=== PATIENT | male | born 1960 | race Caucasian/White ===

== ENCOUNTER 2022-03-07 08:51 | Outpatient (CLI) | payer OTHER, SELFPAY ==
[2022-03-07 14:11] LABS: Albumin* 4.7 g/dL (3.3-5.0); Chloride* 104 mmol/L (96-114); Sodium* 141 mmol/L (135-149)
[2022-03-07 14:12] LABS: Potassium* 5.5 mmol/L (3.6-5.1)
[2022-03-07 14:14] LABS: Alanine Aminotransferase* 27 U/L (4-50); Alkaline Phosphatase* 83 U/L (40-150); Aspartate Amino Transferase* 30 U/L (12-35); Bilirubin Total* 0.5 mg/dL (0.1-1.5); Blood Urea Nitrogen* 24 mg/dL (7-30); Calcium* 9.5 mg/dL (8.4-10.6); Carbon Dioxide* 25 mmol/L (20-32); Cholesterol* 228 mg/dL (90-199); Creatinine* 0.8 mg/dL (0.5-1.5); Estimated Glomerular Filt Rate 101 ml/min; Glucose* 174 mg/dL (60-115); Total Protein* 7.5 g/dL (6.0-8.3); Triglycerides* 369 mg/dL (40-149)
[2022-03-07 14:15] LABS: HDL Cholesterol* 41 mg/dL (>=40); LDL Cholesterol Calculated 113 mg/dL (<100)
[2022-03-07 14:24] LABS: Creatinine Urine 47.9 mg/dL
[2022-03-07 14:29] LABS: Microalbumin Creatinine Ratio 40 mg/g (0-30); Microalbumin Urine 2 mg/dL
[2022-03-08 17:03] LABS: Testosterone, Adult Male 102 ng/dL (300-720)
== END 2022-03-07 08:52 | disposition home or self-care (01) ==
PROVIDERS: PCP Physician Assistant Medical; Visit Provider Physician Assistant Medical
DX: E11.9 Type 2 diabetes mellitus without complications (principal); E66.9 Obesity, unspecified; E78.2 Mixed hyperlipidemia; N52.9 Male erectile dysfunction, unspecified; E78.5 Hyperlipidemia, unspecified; K21.9 Gastro-esophageal reflux disease without esophagitis
CPT/HCPCS: 80053; 80061; 82043; 82570; 84403

== ENCOUNTER 2022-03-19 09:35 | Outpatient (CLI) | payer OTHER, SELFPAY ==
--- NOTE | 2022-03-19 09:45 | CRLHL7_ITS ---
For Patients: As a result of the Century Cures Act, medical imaging exams and procedure reports are released immediately into your electronic medical record. You may view this report before your referring provider. If you have questions, please contact your health care provider. INDICATION: Hyperkalemia TECHNIQUE: Grayscale, color Doppler and spectral Doppler ultrasound of the kidneys performed. COMPARISON: None available FINDINGS: BILATERAL RENAL ARTERY DUPLEX ULTRASOUND ABDOMINAL AORTA: Peak systolic velocity = 94 cm/s. No aortic aneurysm. RIGHT KIDNEY: 12.5 cm in length. There is no hydronephrosis. Peak systolic velocity = 116 cm/second Renal artery to aortic peak systolic velocity ratio = 1.2 Resistive indices: 0.6-0.8 Renal vein = patent LEFT KIDNEY: 12.4 cm in length. There is no hydronephrosis. Peak systolic velocity = 210 cm/second. The acceleration time and waveforms are normal. Renal artery to aortic peak systolic velocity ratio = 2.2 Resistive indices: 0.6-0.7 Renal vein = patent IMPRESSION: No evidence of significant renal artery stenosis. Dictated by Jarrett Mcguire MD @ 03/19/2022 11:43:40 AM (Electronically Signed)
== END 2022-03-19 09:36 | disposition home or self-care (01) ==
LOC: US 09:36
PROVIDERS: PCP Physician Assistant Medical; Visit Provider Physician Assistant Medical
DX: E87.5 Hyperkalemia (principal)
CPT/HCPCS: 76775; 93975

== ENCOUNTER 2022-04-11 09:14 | Outpatient (CLI) | payer OTHER, SELFPAY ==
--- OUTSIDE RECORDS SUMMARY | 2022-04-11 08:01 | XMS_ITS | Clinical Summary ---
:1960 Author Organization [facility] [place] [address] Care Team Providers Name Role Phone Sherrie Hernandez PA-C Primary Care Provider Allergies Active Allergy Reactions Severity Noted Date Comments Lidocaine Hcl Other - Describe In 03/24/2014 Convuls ions as a child Comment Field Shellfish Containing Anaphylaxis 03/24/2014 Products Medications Medication Sig Dispensed Refills Start Date End Date Status ibuprofen (ADVIL) Take 200 mg by mouth 0 Active 200 mg tablet 4 times daily if needed. OMEPRAZOLE/SODIUM Take by mouth. Takes 0 Active BICARBONATE 2-4 per day (ZEGERID ORAL) oxyCODONE-acetamino Take 1 tablet by 20 tablet 0 03/26/2014 Active phen, 5-325 mg, mouth every 4 hours (PERCOCET) per if needed for Pain. tablet Max acetaminophen dose: 4000mg in 24 hrs. HYDROcodone-acetami Take 1 Tablet by 5 Tablet 0 04/15/2021 Active nophen (NORCO) mouth every 4 hours 5-325 mg per if needed for Pain. tabletIndications: Max acetaminophen Laceration of left dose: 4000 mg in 24 foot, initial hrs. encounter Active Problems Not on file Immunizations Name Administration Dates Next Due Tdap 04/15/2021 Family History Medical History Relation Name Comments Heart Disease Father Other Father stroke/dysrhythm ia Relation Name Status Comments Father Social History Tobacco Use Types Packs/Day Years Used Date Former Smoker Quit: 07/29/18 95 Smokeless Tobacco: Never Used Alcohol Use Standard Drinks/Week Comments Yes 0 (1 standard drink = 0.6 oz pure alcoho l) 0.2 drinks per week Alcohol Habits Answer Date Recorded How often do you have a drink containing alcohol? Not asked How many drinks containing alcohol do you have on a Not aske d typical day when you are drinking? How often do you have six or more drinks on one Not asked occasion? Comment: 0.2 drinks per week 03/24/2014 Sex Assigned at Date Recorded Not on file Obstetrics History Last Filed Vital Signs Vital Sign Reading Time Taken Comments Blood Pressure 123/81 04/15/2021 3:31 PM CDT Pulse 96 04/15/2021 3:31 PM CDT Temperature 35.6 ??C (96.1 ??F) 04/15/2021 3:31 PM CDT Respiratory Rate 16 04/15/2021 3:31 PM CDT Oxygen Saturation 96% 04/15/2021 3:31 PM CDT Inhaled Oxygen Concentration - - Weight 95.3 kg (210 lb) 04/15/2021 3:31 PM CDT Height 170.2 cm (5' 7) 04/15/2021 3:31 PM CDT Body Mass Index 32.89 04/15/2021 3:31 PM CDT Plan of Treatment Health Maintenance Due Date Last Done Comments COVID-19 vaccine series (#1) 02/03/1962 Depression screening for age 12+ 1973 BMI (ht and wt on same day) for age 18+ 1979 Hepatitis C screening for age 18-79 1979 Colonoscopy through age 75 2006 Lipids for age 45-75 2006 Zoster (shingles) series for age 50+ (1 of 2) 2011 Influenza for age 50-64 03/29/2022 Tetanus booster 04/15/2031 04/15/2021 Tdap Completed 04/15/2021 Results Not on filefrom Last 3 Months Insurance Payer Benefit Plan / Subscriber ID Effective Dates Phone Addre ss Type Group [employer] [id number] 2013-Presen [id number] MYRANDA NICHOLE [id number] [facility] [id number] 2020-Presen [address] [place] [address] Advance Directives Latest Code Status on File Code Status Date Activated Date Inactivated Comments Full Code 03/25/2014 3:13 PM 03/26/2014 6:17 PM Full Code 03/25/2014 6:12 AM 03/25/2014 3:13 PM Care Teams Supervisor Refractory Products Relationship Specialty Start Date End Date Sherrie Hernandez PA-C PCP - General Emergency Medicine 04/15/[address] [place] [address]
--- OUTSIDE RECORDS SUMMARY | 2022-04-11 08:01 | XMS_ITS | Clinical Summary ---
:1960 Author Organization [facility] Address [address] [address] Care Team Providers Name Role Phone Sherrie Hernandez PA-C Primary Care Provider Source Comments You are receiving this document as you are listed as the primary care provider,follow-up provider, or the patient has been referred to you for consultation.This is in compliance with the Medicare and Medicaid EHR Incentive Program,which states Providers who transition their patient to another setting of careor provider of care or refers their patient to another provider of care shouldprovide summarycare record for each transition of care or referral. [facility] Encounters Date Type Specialty Care Team Description 03/09/2022 Telephone Endocrinology Nurse, [id number] End APPOINTMEN T REQUEST (Referral DM2) from Last 3 Months Social History Tobacco Use Types Packs/Day Years Used Date Smoking Tobacco: Never Assessed Sex Assigned at Date Recorded Not on file Plan of Treatment Health Maintenance Due Date Last Done Comments Colon Cancer Screening Plan 1960 Due Hep C Screening (Preventive 1960 Services) COVID-19 Vaccine (#1) 02/03/1962 HIV Screening (Preventive 1977 Services) Adult Preventive Visit 1979 DTaP/Tdap/Td (1 - Tdap) 1980 Cholesterol 1996 Influenza (#1) 2022 04/09/2019, 03/25/2017, 04/23/2016 Pneumococcal Aged Out 04/23/2016 No longer eligib le based on patient's age to complete this to pic Zoster/Shingles Completed 02/10/2018, 10/25/2017 HepA Aged Out No longer eligib le based on patient's age to complete this to pic HepB Aged Out No longer eligib le based on patient's age to complete this to pic Hib Aged Out No longer eligib le based on patient's age to complete this to pic IPV (Polio) Aged Out No longer eligib le based on patient's age to complete this to pic MCV4 Aged Out No longer eligib le based on patient's age to complete this to pic Insurance Payer Benefit Subscriber ID Effective Phone Address Type Plan / Dates Group [facility] 2019-Pres [phone] [phone] [place] [address] Care Teams Dedicated Local Truck Driver Relationship Specialty Start Date End Date Sherrie Hernandez PA-C PCP - General Physician Master Merchandiser 04/20/[address] [place] [address]
--- OUTSIDE RECORDS SUMMARY | 2022-04-11 08:01 | XMS_ITS ---
:1960 Author Care Team Providers Name Role Phone Ignacia Roblero Primary Care Provider Unavailable Allergies Code Code System Name Reaction Severity Status Onset NKDA ? Medications Name Status Start Date Stop Date ? ? Accu-Chek Charito Plus test strips Active ? Not available Accu-Chek Softclix Lancets Active ? Not a vailable aspirin 81 mg tablet,delayed release Active ? Not available atorvastatin 10 mg tablet Active ? Not av ailable cephalexin 500 mg capsule Active ? Not av ailable fenofibrate micronized 134 mg capsule Active ? Not available glipizide ER 10 mg tablet, extended release 24 hr Active ? Not available hydrocodone 5 mg-acetaminophen 325 mg tablet Active ? Not available Januvia 50 mg tablet Active ? Not availab le Jardiance 10 mg tablet Active ? Not avail able metformin 1,000 mg tablet Active ? Not av ailable phentermine 37.5 mg tablet Active ? Not a vailable sulfamethoxazole 800 mg-trimethoprim 160 mg tablet Active ? Not available TAKE ONE TABLET BY MOUTH TWICE DAILY UNTIL FINISHED topiramate 25 mg tablet Active ? Not avai lable Problems None recorded. Procedures None recorded. Results Lab Results Date Name Specimen Result Interpretation Description Value Range Status Address ? 08/11/2021 Rapid SARS CoV Nose (nasal ? Result negative ? ? [facility] 2 Ag, QL IA, passage) [facility] Respiratory [facility] ille: Specimen [id number] Past Encounters 08/11/2021 Exposure to SARS-CoV-2; Viral Syndrome Ignacia Roblero, PA: [address] , [address] [address], Ph. [phone] Social History None recorded. Vaccine List None recorded. Plan of Care Patient Instructions Discussed rapid covid results with bill ent. Patient appears well, no immediate concerns. Patient understands and agrees with treatment plan and instructions. Symptom management discussed to continue OTC cough/cold medications as needed. Medication side effects discussed. Discu ssed risks? benefits? alternatives? side effects of treatment. If symptoms progre ss or worsen, patient should proceed to the emergency room immediately. All question s answered. Reminders Provider Appointments None recorded. ? ? Lab None recorded. ? ? Referral None recorded. ? ? Procedures None recorded. ? ? Surgeries None recorded. ? ? Imaging None recorded. ? ? Vitals Blood Pressure 137/89 mm[Hg]
--- OUTSIDE RECORDS SUMMARY | 2022-04-11 08:01 | XMS_ITS | Encounter Summary ---
:1960 Author Organization [employer] Address [address] [place] [address] Care Team Providers Name Role Phone Sherrie Hernandez Juan STONE Primary Care Provider Reason for Visit Reason Comments HEARING PROBLEM Tinnitus Encounter Details Date Type Department Care Team Description 04/20/2020 Office Visit [facility] [address] [place] sensorineural hearing [place], [place] [address] [facility] loss of ester th ears [id number] [address] (Primary Dx) [phone] [place] [address] Social History Tobacco Use Types Packs/Day Years Used Date Smoking Tobacco: Never Assessed Sex Assigned at Date Recorded Not on file documented as of this encounter Progress Notes Mere Crawford AU.D. - 04/20/2020 1:00 PM CDT Subjective: Bishop Flores, 59 y.o., was seen for an audiological evaluation upon self-referral. He has not been seen previously for a hearing evaluation at [facility]. The patient reports that he has not heard well for several years. He says what often. [facility] and [facility]. Per patient report, he receives benefits through the [facility], but he was not deemed service connected. He did not qualify for hearing aids through the [facility]. 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 He notes use of ear-muff style hearing protection. He also reports constant tinnitus in both ears. The patient denies drainage, ear pain, pressure, vertigo/dizziness, previous ear surgery, family history of hearing loss. Objective: Otoscopy revealed clear ear canals, bilaterally. Tympanometry revealed normal ear canal volume, pressure and static admittance, bilaterally. Patient was evaluated under insert earphones with good reliability. Pure tone audiometric testing revealed an asymmetrical sensorineural hearing loss; normal through 3000 Hz sloping to moderate, in the right ear, and normal through 2000 Hz sloping to moderate, in the left ear. Asymmetry of 20-25 dBHL noted at 3-4 kHz, poorer in the left ear. Speech medical receptionist assistant thresholds were obtained at 15 dBHL for the right ear and 20 dBHL for the left ear. Word recognition at 55 dBHL was 100% for the right ear and at 55 dBHL was 100% for the left ear using NU-6 wordlist. Assessment: Results indicate a communicatively significant asymmetrical sensorineural hearing loss. Tympanometrywas normal,bilaterally. Speech medical receptionist assistant thresholds were in good agreement with the pure tone thresholds. Word recognition for both ears was considered to be excellent at a conversational level. Plan: These results were discussed with the patient. It was recommended that the patient follow up with anear, nose, and throat consultation in regards to asymmetrical hearing loss. Various ways to minimizethe impact of tinnitus on everyday life were discussed including the use of fan noise and tinnitus masker apps. He is a candidate for binaural amplification pending medical clearance and was invited to schedule ahearing aid evaluation appointment to learn more about available amplification options. He was also encouraged to follow up with the [facility] for potential [facility] aid coverage due to tinnitus and hearing loss. Regardless of his amplification choice, it was recommended that he return to the clinic in one totwo years for a hearing evaluation to monitor his hearing and to utilize hearing protection devices when in noise. All questions were fully answered. documented in this encounter Plan of Treatment Not on filedocumented as of this encounter Visit Diagnoses Diagnosis Asymmetrical sensorineural hearing loss of both ears - Primary documented in this encounter Care Teams Commercial Kitchen Service Technician Relationship Specialty Start Date End Date Sherrie Hernandez PA-C PCP - General Physician Tester Printed Circuit Boards 04/20/20 [address] [place] [address] documented as of this encounter
[2022-04-12 18:55] LABS: Testosterone, Adult Male 162 ng/dL (300-720)
== END 2022-04-11 09:15 | disposition home or self-care (01) ==
PROVIDERS: PCP Physician Assistant Medical; Visit Provider Physician Assistant Medical
DX: R79.89 Other specified abnormal findings of blood chemistry (principal)
CPT/HCPCS: 84403

== ENCOUNTER 2022-08-29 15:01 | Outpatient (CLI) | payer OTHER, SELFPAY ==
[2022-08-29 13:42] LABS: Creatinine Urine 76.7 mg/dL
[2022-08-29 13:46] LABS: Microalbumin Creatinine Ratio 20 mg/g (0-30); Microalbumin Urine 2 mg/dL
[2022-08-29 14:59] LABS: Albumin* 4.6 g/dL (3.3-5.0)
[2022-08-29 15:00] LABS: Chloride* 106 mmol/L (96-114); Sodium* 143 mmol/L (135-149)
[2022-08-29 15:02] LABS: Aspartate Amino Transferase* 32 U/L (12-35); Bilirubin Total* 0.6 mg/dL (0.1-1.5); Carbon Dioxide* 27 mmol/L (20-32); Cholesterol* 186 mg/dL (90-199); Creatinine* 0.8 mg/dL (0.5-1.5); Estimated Glomerular Filt Rate 101 ml/min; Total Protein* 7.4 g/dL (6.0-8.3)
[2022-08-29 15:03] LABS: Alanine Aminotransferase* 31 U/L (4-50); Alkaline Phosphatase* 66 U/L (40-150); Blood Urea Nitrogen* 19 mg/dL (7-30); Calcium* 9.7 mg/dL (8.4-10.6); Glucose* 128 mg/dL (60-115); HDL Cholesterol* 45 mg/dL (>=40); LDL Cholesterol Calculated 89 mg/dL (<100); Potassium* 4.6 mmol/L (3.6-5.1); Triglycerides* 262 mg/dL (40-149)
[2022-08-30 22:17] LABS: Testosterone, Adult Male 128 ng/dL (300-720)
== END 2022-08-29 15:02 | disposition home or self-care (01) ==
PROVIDERS: PCP Physician Assistant Medical; Visit Provider Physician Assistant Medical
DX: E11.9 Type 2 diabetes mellitus without complications (principal); R79.89 Other specified abnormal findings of blood chemistry; E78.5 Hyperlipidemia, unspecified
CPT/HCPCS: 80053; 80061; 82043; 82570; 84403

== ENCOUNTER 2023-03-06 08:50 | Outpatient (CLI) | payer OTHER, SELFPAY | END 2023-03-06 08:51 | disposition home or self-care (01) | PROVIDERS: PCP Physician Assistant Medical; Visit Provider Physician Assistant Medical | DX: Z00.00 Encounter for general adult medical examination without abnormal findings (principal); R79.89 Other specified abnormal findings of blood chemistry; E87.5 Hyperkalemia; E66.9 Obesity, unspecified; E11.9 Type 2 diabetes mellitus without complications; E78.5 Hyperlipidemia, unspecified; R53.83 Other fatigue; Z12.5 Encounter for screening for malignant neoplasm of prostate; Z11.59 Encounter for screening for other viral diseases | CPT/HCPCS: 80053; 82043; 82570; 82607; 84153; 84403; 86703; 86803 ==

== ENCOUNTER 2024-10-12 08:52 | Outpatient (CLI) | payer OTHER, SELFPAY | END 2024-10-12 08:53 | disposition home or self-care (01) | LOC: NFLDREF 10-13 05:26 | PROVIDERS: PCP Physician Assistant Medical; Visit Provider Physician Assistant Medical | DX: E78.5 Hyperlipidemia, unspecified (principal); E11.9 Type 2 diabetes mellitus without complications; Z13.21 Encounter for screening for nutritional disorder; Z13.29 Encounter for screening for other suspected endocrine disorder; Z12.5 Encounter for screening for malignant neoplasm of prostate | CPT/HCPCS: 80053; 80061; 82043; 82570; 82607; 84443; G0103 ==

== ENCOUNTER 2024-10-28 08:42 | Outpatient (CLI) | payer OTHER, SELFPAY | END 2024-10-28 08:43 | disposition home or self-care (01) | LOC: NFLDREF 10-31 12:32 | PROVIDERS: PCP Physician Assistant Medical; Visit Provider Physician Assistant Medical | DX: D58.2 Other hemoglobinopathies (principal); R79.89 Other specified abnormal findings of blood chemistry; E87.5 Hyperkalemia | CPT/HCPCS: 82668; 84132; 84403 ==

== ENCOUNTER 2024-11-04 14:26 | Outpatient (CLI) | payer OTHER, SELFPAY | END 2024-11-04 14:27 | disposition home or self-care (01) | PROVIDERS: PCP Physician Assistant Medical; Visit Provider Emergency Medicine | DX: D58.2 Other hemoglobinopathies (principal); R79.89 Other specified abnormal findings of blood chemistry; R53.83 Other fatigue; D75.1 Secondary polycythemia; Z01.818 Encounter for other preprocedural examination | CPT/HCPCS: 81219; 81270; 81338; 82728; 83540; 83550 ==

== ENCOUNTER 2024-11-10 10:00 | Outpatient (CLI) | payer OTHER, SELFPAY ==
--- NOTE | 2024-11-10 11:34 | P.ANES_ITS ---
Anesthesia Charges Start Date/Time Anesthesia Start Date: 11/10/24 Anesthesia Start Time: 11:05 Stop Date/Time Anesthesia Stop Date: 11/10/24 Anesthesia Stop Time: 12:10 Coding CPT Codes CPT Codes: TYLER LWR INTST NDSC NOS - 52168 ([id number]) P2 - PATIENT W/MILD SYST DISEASE, QK - HUMAN RESOURCES ASSOCIATE 2-4 CNCRNT ANES PROC, QX - PYROGLAZER SVC W/ MD MED DIRECTION
--- NOTE | 2024-11-10 11:34 | W.ANESCHARGE ---
Anesthesia Charges Start Date/Time Anesthesia Start Date: 11/10/24 Anesthesia Start Time: 11:05 Stop Date/Time Anesthesia Stop Date: 11/10/24 Anesthesia Stop Time: 12:10 Coding CPT Codes CPT Codes: TYLER LWR INTST NDSC NOS - 49651 ([id number]) P2 - PATIENT W/MILD SYST DISEASE, QK - BULK MATERIALS HANDLING PLANT OPERATOR 2-4 CNCRNT ANES PROC, QX - TECHNICAL RESEARCH SCIENTIST SVC W/ MD MED DIRECTION
--- NOTE | 2024-11-10 12:18 | P.ANES_ITS ---
Anesthesia Charges Start Date/Time Anesthesia Start Date: 11/10/24 Anesthesia Start Time: 11:05 Stop Date/Time Anesthesia Stop Date: 11/10/24 Anesthesia Stop Time: 12:10 Coding CPT Codes CPT Codes: TYLER LWR INTST NDSC NOS - 95062 ([id number]) P2 - PATIENT W/MILD SYST DISEASE, QK - HEALTH THERAPIST 2-4 CNCRNT ANES PROC, QX - PSYCHOLOGISTS SVC W/ MD MED DIRECTION
--- NOTE | 2024-11-10 12:18 | W.ANESCHARGE ---
Anesthesia Charges Start Date/Time Anesthesia Start Date: 11/10/24 Anesthesia Start Time: 11:05 Stop Date/Time Anesthesia Stop Date: 11/10/24 Anesthesia Stop Time: 12:10 Coding CPT Codes CPT Codes: TYLER LWR INTST NDSC NOS - 42699 ([id number]) P2 - PATIENT W/MILD SYST DISEASE, QK - MEDICAL SCREENER 2-4 CNCRNT ANES PROC, QX - BOX SEALING MACHINE CATCHER SVC W/ MD MED DIRECTION
== END 2024-11-10 10:01 | disposition home or self-care (01) ==
LOC: OP CLINIC 10:00
PROVIDERS: PCP Physician Assistant Medical; Visit Provider Surgery
DX: Z12.11 Encounter for screening for malignant neoplasm of colon (principal); D12.0 Benign neoplasm of cecum; D12.2 Benign neoplasm of ascending colon; D12.3 Benign neoplasm of transverse colon; D12.5 Benign neoplasm of sigmoid colon; Z86.0100 Personal history of colon polyps, unspecified
CPT/HCPCS: 00811; 45380; 45381; 45385; 88305

== ENCOUNTER 2024-12-01 11:30 | Outpatient (RCR) | payer OTHER, SELFPAY | END 2025-05-09 23:59 | disposition home or self-care (01) | LOC: CCIC 11:30 | PROVIDERS: PCP Physician Assistant Medical; Referring Provider Physician Assistant Medical; Visit Provider Internal Medicine Hematology & Oncology | DX: D75.1 Secondary polycythemia (principal) | CPT/HCPCS: 99202; 99204; 99213; 99214; G0463; J2704 ==

== ENCOUNTER 2024-12-29 07:54 | Inpatient (IN) | payer OTHER, SELFPAY ==
[2024-12-29] VITALS (23 sets, daily range): BP systolic 122–162; BP diastolic 66–100; PULSE 51–83; RESP 12–18; TEMP 36.6–37.6; O2SAT 79–96; BMI 32.1
[2024-12-29] MEDS: LACTATED RINGERS 1000 ML 1,000 ML 100 ML IV ×4 (08:00→17:04)
[2024-12-29] MEDS: SODIUM CHLORIDE 0.9 % (FLUSH) 10 ML SYRINGE IVF (08:50)
--- NOTE | 2024-12-29 08:52 | W.PM.H&PU ---
History & Physical Update History & Physical Update H&P Reviewed and patient assessed: No changes noted
--- NOTE | 2024-12-29 08:53 | P.GSOP_ITS ---
Operative Note Date of procedure: 12/29/24 Pre-op diagnosis: 1. Ileocecal valve polyp. Post-op diagnosis: Same Type of Procedure: 1. Laparoscopic right hemicolectomy. 2. Extensive lysis of adhesions over 2 hours. Indications: 64-year-old male was seen in clinic after he underwent a colonoscopy in October 2024 and was found to have 23 mm tubular adenoma overlying the ileocecal valve. This polyp was deemed to be surgically unresectable and was only biopsied. Patient's surgical history is significant for laparoscopic Blanca fundoplication and open appendectomy. On clinical exam patient had surgical scars consistent with his prior surgical history. His abdomen was not tender to palpation. Given patient's clinical history in the polyp appearance, laparoscopic ileocecectomy was recommended. The procedure was discussed in detail. The risks associated procedure including infection, bleeding, injury to intra- abdominal organs, and the need for additional procedures were all discussed with the patient, and he agreed to proceed. Procedure Description: After discussing the risks and benefits of the procedure, the patient signed informed consent.? The operative site was marked and the patient was brought to the operating room and placed on the operating table in supine position.? Care was taken to pad the patient's pressure points.?? The patient was then intubated by anesthesia.? Baker catheter was placed under sterile conditions. TAP blocks were administered by Anesthesia.? The operative site was then prepped and draped in the usual sterile fashion.? A time-out was then performed. A 5-mm laparoscopy port was placed in the left upper quadrant guided by a 5-mm laparoscope placed into a translucent trochar.? Passage through the layers of the abdominal wall was visualized with the laparoscope.? A pneumoperitoneum was established. A 30-degree 5-mm laparoscope was advanced into the abdomen. 12 mm port and a 5-mm port were placed in the left low quadrant and suprapubically, respectively, under direct visualization by laparoscope. An additional 5 mm port was placed above umbilicus. Left upper quadrant entrance port was then examined intraabdominally by placing the camera through the left lower quadrant port and no intraabdominal injury was seen.? The cecum was identified and was adherent to the lateral abdominal wall. The terminal ileum was identified and was adherent to the lateral abdominal wall as well. Omentum was overlying the cecum and was also adherent to the abdominal wall. I first proceeded with lysis of adhesions. The omental adhesions were taken down with Harmonic scalpel. The cecum was then grasped and rotated medially. Right colon abdominal wall adhesions to the lateral abdominal wall were taken down with Harmonic scalpel and with Metzenbaum scissors. The terminal ileal adhesions to the lateral abdominal wall were taken down with Harmonic scalpel and Metzenbaum scissors. Several interloop adhesions were noted and those were taken down with Metzenbaum scissors. Medially the omentum was adherent to the right colon mesentery and to the ascending colon. Those adhesions were taken down with Harmonic scalpel until the anterior and medial wall of the right colon was visualized. Overall lysis of adhesions took over 2 hours. The cecum was retracted medially. The appendix was surgically absent. I then proceeded with a medial to lateral dissection. The cecum was grasped and retracted towards the abdominal wall.? Vascular branch of the ileocolic vascular pedicle was identified but this was too small to be the ileocolic vascular pedicle and was most likely a branch of the ileocolic artery. This was skeletonized with the Harmonic scalpel. This vascular branch was then controlled with vascular staple load of Endo SUREKHA stapler. Bleeding was seen from the staple line and that was controlled with a vascular clip. We then continued mesenteric dissection further. The right colon mesentery was fatty and thickened and it was difficult to visualize the vascular pedicle. I elected to proceed with mobilization of hepatic flexure. The transverse colon and hepatic flexure were reflected caudad. Omentum was tightly adherent to the anterior side of the transverse colon. These adhesions were taken down with Harmonic scalpel. The avascular plane of the posterior transverse colon was then identified and entered with Harmonic scalpel. The transverse colon was reflected caudally and this dissection was carried towards the hepatic flexure. Care was taken not to injure the duodenum. Multiple adhesions were encountered in this plane as well from patient's previous surgery. This dissection was carried further towards the lateral abdominal wall in the relatively avascular plane. When the right colon was mobile laterally, I returned my dissection to the medial plane. I was able to identify the ileocolic vascular pedicle and dissect this circumferentially bluntly and with Harmonic scalpel. The vascular pedicle was located in the mid ascending colon, and dividing this vascular pedicle would devascularize the ascending colon. I elected to convert the ileocecectomy into right hemicolectomy to have healthy colon for anastomosis. This vascular pedicle was then stapled with a vascular load of Endo-SUREKHA stapler. The right colon mesentery was then further dissected towards the hepatic flexure. A right branch of the colic artery was also identified and this branch was fairly short tethering the right colon to the retroperitoneal plane. I elected to divide this branch to be able to have increased mobility of the hepatic flexure and create tension-free anastomosis. This vascular branch was then clipped with 5 mm clips on the patient's side and a single clip on the specimen side and divided with Harmonic scalpel. At this time the right colon was mobile and flappy and the terminal ileum was mobile. We proceeded with extracorporeal part of the procedure. The patient was flattened, supraumbilical 5 mm port was removed, and a supraumbilical surgical incision was made with a scalpel in the midline. Subcutaneous tissues were divided with cautery. Anterior fascia was divided with cautery.? Patient's abdominal wall was thin was almost no subcutaneous fat.? The abdomen was then deflated.? The Alex retractor was placed into the incision.? The dissected right colon and cecum were exteriorized.? The right colon was still tethered by the right colon mesentery to the retroperitoneum. The right colon mesentery was divided with Harmonic scalpel staying close to the right colon. The terminal ileum were very mobile.? We then proceeded with extracorporeal [id number] functional end-to-end anastomosis. Towels were used to cover the entire abdomen and laparoscopic instruments to minimize contamination. Small bowel mesentery just proximal to the ileocecal valve was divided with clamps and Vicryl ties. A blue load of SUREKHA stapler was used to divide the terminal ileum and another load was used to divide ascending colon at the level of hepatic flexure of transverse colon. The specimen was then passed off the field. Prominent epiploic fat was seen in the anterior medial transverse colon. Several epiploic fat were excised with cautery to exclude this from anastomosis. This was sent to pathology with the right colon specimen. The transverse colon and terminal ileum were then lined up for anastomosis.? An enterotomy was made near the staple line with cautery.? A colotomy was also made near the staple line with cautery.? The handles of the SUREKHA stapler were advanced into the small intestine and colon.? The [id number]-dy-guod anastomosis was then made with the 100 blue load of SUREKHA stapler.? The staple line was examined from the inside and no active bleeding was seen.? The common enterotomy was then closed with interrupted 3-0 silk pop-off sutures using Lembert sutures.? A crotch stitch was placed with 3-0 silk suture as well.? The anastomosis was palpated and was patent.? Anastomosis appeared well perfused.? The anastomosis was then placed into the abdomen.? The right colon was opened on the back table and ileocecal valve polyp was identified. The right colon was sent to pathology together with epiploic fat. All the dirty instruments and towels were removed.? The Alex retractor was removed.? The surgeon and assistants changed gloves to new gloves.? We then proceeded with abdominal closure. The anterior fascia was then closed with 2 running 0-0 PDS sutures.?The abdomen was then insufflated again.? The anastomosis was examined intra-abdominally and appeared to be lying in the right upper quadrant and was perfused.? No bleeding was identified in the surgical field.? The abdomen was irrigated and no significant bleeding was noted at the surgical site.? Redundant Omentum was placed over the entire abdomen.? The fascia of the left lower quadrant 12 mm port incision was closed with 0-0 Vicryl sutures with Gregg-Cassius needle under direct visualization. The 5 mm ports were removed under direct visualization and pneumoperitoneum was reduced through a left upper quadrant incision. The dermis of the supraumbilical incision was reapproximated with interrupted 3- 0 Vicryl sutures.? The skin of all incisions was closed with 4-0 Monocryl stitches.? Sterile dressings were placed over the incisions. All counts were correct at the end of the case. Patient tolerated this procedure well and was transferred to PACU in stable condition. Findings: Extensive adhesions in the right abdomen and near hepatic flexure. The ileocecal valve polyp was identified when the colon was opened on the back table. Anesthesia: GETA Surgeon: Vasyl Proctor MD Estimated blood loss (mL): 50 Additional Specimen Information: 1. Right colon. Condition: stable Disposition: PACU
[2024-12-29] MEDS: ERTAPENEM 1 GM inj IVPB (09:36)
--- NOTE | 2024-12-29 09:37 | W.PM.NB ---
Nerve Block Nerve Block Time Seen by Provider: 09:32 Date Seen: 12/29/24 Type of block requested by surgeon for post-operative analgesia: TAP Side: bilateral Time out performed: Yes Verification of patient name: Yes Verification of date of : Yes Site marking: site marked Name of person performing procedure: Jonny Hammond Continuous monitoring Was continuous monitoring of O2 sat, B/P, quality assurance monitor chassis, recorded every 15 minutes?: Yes Procedure Checklist: sterile prep, needles and gloves Ultrasound guided. Images saved: Yes Medications given in 5ml increments after negative aspiration: Marcaine %: 0.25 mL: 30 Needle gauge: 20 and Exparel mL: 10 Needle gauge: 20 Patient tolerated procedure well: Yes Additional comments: Injected in 5 mL increments after negative aspiration Block Charges Block Charge (with Pro Fee): TAP Bilateral Use of Ultrasound Machine for Block: Yes- US Guidance/pain block
--- NOTE | 2024-12-29 11:25 | P.ANES_ITS ---
Anesthesia Charges Start Date/Time Anesthesia Start Date: 12/29/24 Anesthesia Start Time: 09:25 Stop Date/Time Anesthesia Stop Date: 12/29/24 Anesthesia Stop Time: 15:10 Coding CPT Codes CPT Codes: ANESTH SURG UPPER ABDOMEN - 87298 ([id number]) P2 - PATIENT W/MILD SYST DISEASE, QK - DESIGN PAINTER 2-4 CNCRNT ANES PROC, QX - BOBCAT DRIVER/LABOR SVC W/ MD MED DIRECTION
--- NOTE | 2024-12-29 11:25 | W.ANESCHARGE ---
Anesthesia Charges Start Date/Time Anesthesia Start Date: 12/29/24 Anesthesia Start Time: 09:25 Stop Date/Time Anesthesia Stop Date: 12/29/24 Anesthesia Stop Time: 15:10 Coding CPT Codes CPT Codes: ANESTH SURG UPPER ABDOMEN - 40618 ([id number]) P2 - PATIENT W/MILD SYST DISEASE, QK - POWER OPERATOR 2-4 CNCRNT ANES PROC, QX - DEPUTY DISTRICT CUSTOMS DIRECTOR SVC W/ MD MED DIRECTION
[2024-12-29] MEDS: LIDOCAINE 1%-EPI 1:100,000 20 ML INFILTRATI (14:38)
[2024-12-29] MEDS: BUPIVACAINE 0.25% 30 ML INJECTION (14:38)
[2024-12-29] MEDS: hydrOXYzine pamoate 25 MG CAPSULE PO (15:09)
[2024-12-29] MEDS: fentaNYL 100 MCG/2 ML inj 50 MCG IVP ×2 (15:17→15:42)
--- NOTE | 2024-12-29 15:20 | P.ANES_ITS ---
Anesthesia Charges Start Date/Time Anesthesia Start Date: 12/29/24 Anesthesia Start Time: 09:25 Stop Date/Time Anesthesia Stop Date: 12/29/24 Anesthesia Stop Time: 15:10 Coding CPT Codes CPT Codes: ANESTH SURG UPPER ABDOMEN - 12654 ([id number]) P2 - PATIENT W/MILD SYST DISEASE, QK - ESCALATOR CONSTRUCTOR 2-4 CNCRNT ANES PROC, QX - SHOP CLERK SVC W/ MD MED DIRECTION
--- NOTE | 2024-12-29 15:20 | W.ANESCHARGE ---
Anesthesia Charges Start Date/Time Anesthesia Start Date: 12/29/24 Anesthesia Start Time: 09:25 Stop Date/Time Anesthesia Stop Date: 12/29/24 Anesthesia Stop Time: 15:10 Coding CPT Codes CPT Codes: ANESTH SURG UPPER ABDOMEN - 03584 ([id number]) P2 - PATIENT W/MILD SYST DISEASE, QK - BRIM POUNCER 2-4 CNCRNT ANES PROC, QX - PROCEDURAL NURSE SVC W/ MD MED DIRECTION
[2024-12-29] MEDS: ONDANSETRON 2 MG/ML inj 4 MG IVP (15:32)
--- NOTE | 2024-12-29 16:23 | SUR.PHASEI ---
patient met discharge criteria per anesthesia
[2024-12-29] MEDS: HYDROmorphone 0.5 mg/0.5 ml inj IVP ×3 (16:59→23:21)
[2024-12-29] MEDS: HYDROCODONE-ACETAMIN 5-325 MG 1 TAB PO (18:09)
--- NOTE | 2024-12-29 23:30 | PC.NURSE ---
Patient alert and oriented x4. Complains of abdominal pain at surgical site. Pain managed by PRN pain meds ( See MAR) Dilaudid was effective on managing patient's pain. Patient remained in bed all shift. Did not want to move due to pain. Baker remains in place. Patent and draining. Patient reported that he was burping. He is on clear liquids which he is tolerating. denies nausea. Dressing on surgical site clean dry and intact with no drainage noted. Patient's vital signs remain stable.
[2024-12-30] VITALS (7 sets, daily range): BP systolic 101–156; BP diastolic 49–71; PULSE 69–81; RESP 12–18; TEMP 36.8–37.5; O2SAT 91–94
[2024-12-30] MEDS: LACTATED RINGERS 1000 ML 1,000 ML 100 ML IV ×2 (01:17→11:13)
[2024-12-30] MEDS: HYDROCODONE-ACETAMIN 5-325 MG 1 TAB PO ×4 (01:18→19:55)
[2024-12-30] MEDS: HYDROmorphone 0.5 mg/0.5 ml inj IVP ×2 (01:18→04:01)
[2024-12-30] MEDS: SODIUM CHLORIDE 0.9 % (FLUSH) 10 ML SYRINGE IVF ×3 (01:19→23:37)
--- NOTE | 2024-12-30 05:51 | PC.NURSE ---
Pt alert and oriented x3. Afebrile. Pt reports 4-8/10 pain in abdomen, pain managed with PRN medication and cold pack. Pt?s lap sites and midline incision are CDI. Pt?s moscoso is patent and draining. Pt denies passing gas yet, pt?reports burping and bowel sounds are active. Pt is tolerating a clear liquid diet.
[2024-12-30] MEDS: ACETAMINOPHEN 325 MG TABLET 650 MG PO (11:39)
--- NOTE | 2024-12-30 12:41 | PM.GSPN ---
Subjective Subjective Date Seen: 12/30/24 Interval history: Patient is doing well postoperatively. He does complain of abdominal pain that is controlled with pain medications. His Baker catheter was removed. He denies nausea or vomiting. He drank water yesterday. Passed gas once. Exam Narrative: Exam Narrative: Abdomen is soft, protuberant, tender to palpation in the right abdomen, no peritoneal signs. Laparoscopic incisions are covered with clean steroids. Midline incision is covered with clean and dry dressing. Const: Vital Signs, click to edit/add: Vital Signs - 24 hr 12/29/24 15:05 12/29/24 15:10 12/29/24 15:15 Temperature 99.3 F 99.3 F 99.3 F Pulse Rate 67 61 62 Pulse Rate [Pulse Oximeter] Respiratory Rate 14 12 12 Blood Pressure 122/75 154/66 H 151/71 H Blood Pressure [Le ft Arm] Pulse Oximetry 93 93 92 Oxygen Delivery Me thod Nasal Cannula Nasal Cannula Nasal Cannula Oxygen Flow Rate 4 4 4 12/29/24 15:20 12/29/24 15:25 12/29/24 15:30 Temperature 99.3 F 99.3 F 99.3 F Pulse Rate 62 64 62 Pulse Rate [Pulse Oximeter] Respiratory Rate 12 12 12 Blood Pressure 157/76 H 137/100 H 146/69 H Blood Pressure [Le ft Arm] Pulse Oximetry 93 94 94 Oxygen Delivery Me thod Nasal Cannula Nasal Cannula Nasal Cannula Oxygen Flow Rate 4 4 4 12/29/24 15:35 12/29/24 15:40 12/29/24 15:45 Temperature 99.4 F 99.4 F 99.4 F Pulse Rate 61 61 67 Pulse Rate [Pulse Oximeter] Respiratory Rate 12 14 14 Blood Pressure 156/79 H 158/86 H 151/82 H Blood Pressure [Le ft Arm] Pulse Oximetry 92 94 94 Oxygen Delivery Me thod Nasal Cannula Nasal Cannula Nasal Cannula Oxygen Flow Rate 4 4 4 12/29/24 15:50 12/29/24 15:55 12/29/24 16:00 Temperature 99.4 F 99.4 F 99.4 F Pulse Rate 65 65 67 Pulse Rate [Pulse Oximeter] Respiratory Rate 13 13 13 Blood Pressure 162/81 H 155/79 H 157/77 H Blood Pressure [Le ft Arm] Pulse Oximetry 94 94 94 Oxygen Delivery Me thod Nasal Cannula Nasal Cannula Nasal Cannula Oxygen Flow Rate 4 4 4 12/29/24 16:05 12/29/24 16:10 12/29/24 16:24 Temperature 99.4 F 99.4 F 99.2 F Pulse Rate 67 66 Pulse Rate [Pulse Oximeter] 70 Respiratory Rate 12 13 16 Blood Pressure 147/80 H 150/80 H Blood Pressure [Le ft Arm] 138/71 Pulse Oximetry 94 94 94 Oxygen Delivery Me thod Nasal Cannula Nasal Cannula Nasal Cannula Oxygen Flow Rate 4 4 4 12/29/24 16:30 12/29/24 16:30 12/29/24 18:09 Temperature 99.7 F H 99.7 F H Pulse Rate 66 Pulse Rate [Pulse Oximeter] Respiratory Rate 16 16 Blood Pressure Blood Pressure [Le ft Arm] Pulse Oximetry 94 94 Oxygen Delivery Me thod Nasal Cannula Nasal Cannula Oxygen Flow Rate 4 4 12/29/24 19:00 12/29/24 20:07 12/29/24 21:00 Temperature 98.5 F 98.5 F 98.7 F Pulse Rate 78 78 Pulse Rate [Pulse Oximeter] 80 Respiratory Rate 17 17 17 Blood Pressure 149/77 H 149/77 H Blood Pressure [Le ft Arm] 127/82 Pulse Oximetry 93 79 L 95 Oxygen Delivery Me thod Nasal Cannula Nasal Cannula Nasal Cannula Oxygen Flow Rate 3 3 2 12/29/24 22:00 12/29/24 23:00 12/30/24 01:30 Temperature 99.0 F 98.3 F Pulse Rate 83 Pulse Rate [Pulse Oximeter] 74 Respiratory Rate 18 16 16 Blood Pressure 127/73 Blood Pressure [Le ft Arm] 128/70 Pulse Oximetry 95 96 94 Oxygen Delivery Me thod Nasal Cannula Nasal Cannula Nasal Cannula Oxygen Flow Rate 2 1.5 1 12/30/24 08:48 12/30/24 08:48 12/30/24 08:48 Temperature 99.5 F Pulse Rate Pulse Rate [Pulse Oximeter] 71 71 Respiratory Rate 14 14 14 Blood Pressure Blood Pressure [Le ft Arm] 125/63 Pulse Oximetry 91 91 Oxygen Delivery Me thod Room Air Room Air Oxygen Flow Rate 12/30/24 11:15 Temperature 99.1 F Pulse Rate Pulse Rate [Pulse Oximeter] 78 Respiratory Rate 14 Blood Pressure Blood Pressure [Le ft Arm] 125/65 Pulse Oximetry 91 Oxygen Delivery Me thod Room Air Oxygen Flow Rate Progress Note:A&P Assessment and plan (1) S/P right hemicolectomy: Status: Acute Assessment and Plan: 64-year-old male s/p laparoscopic right hemicolectomy for ileocecal valve polyp POD 1. We advanced patient's diet to full liquid diet. I discussed with the patient that he should go slow. He should avoid carbonated drinks. Patient should ambulate as much as possible. Patient did pass gas once but we will wait for more consistent return of bowel function. Will DC his fluids today.
[2024-12-30] MEDS: IBUPROFEN 600 MG TABLET PO ×2 (12:45→23:35)
--- NOTE | 2024-12-30 17:00 | PM.IMCN1 ---
Date of Consult Patient: [facility] Patient Consult date: 12/30/24 Requesting Physician: General Surgery Primary Care Provider: Sherrie Hernandez PA-C Consult Narrative Reason for consult: Medical management Narrative: Bishop Flores is a 64 year old male past medical history significant for diabetes mellitus, hyperlipidemia, polycythemia, chronic right shoulder pain who is POD#1 s/p Laparoscopic right hemicolectomy and Extensive lysis of adhesions. Patient reports feeling a little better today. Postsurgical pain waxes and wanes. Has had a headache which has finally resolved following fluids and ibuprofen Tylenol today. Tolerating orals without nausea. Reviewed home medications. Is on metformin as well as Ozempic for diabetes, additionally topiramate for weight management. Jardiance has been discontinued. Takes gabapentin for right shoulder pain. Recently seen by Hematology in October for polycythemia thought to be due to testosterone replacement therapy. Nonsmoker. Rare alcohol use. PCP is Sherrie Hernandez. Review of Systems Narrative: REVIEW OF SYSTEMS: Complete review of systems performed and negative unless otherwise stated in HPI or below. [facility] Medical History [place] [employer] Hyperlipidemia ?E78.5 - Hyperlipidemia, unspecified (ICD-10) Diabetes ?E11.9 - Type 2 diabetes mellitus without complications (ICD-10) Erectile dysfunction ?N52.9 - Male erectile dysfunction, unspecified (ICD-10) Elevated cholesterol with elevated triglycerides ?E78.2 - Mixed hyperlipidemia (ICD-10) Obesity (BMI 30-39.9) ?E66.9 - Obesity, unspecified (ICD-10) Low testosterone in male ?R79.89 - Other specified abnormal findings of blood chemistry (ICD-10) Fatigue ?R53.83 - Other fatigue (ICD-10) Hearing loss ?H91.90 - Unspecified hearing loss, unspecified ear (ICD-10) Elevated hemoglobin (~09/2024) ?D58.2 - Other hemoglobinopathies (ICD-10) Polycythemia ?D75.1 - Secondary polycythemia (ICD-10) Colon polyp (~10/2024) ?K63.5 - Polyp of colon (ICD-10) History of renal stone ?Z87.442 - Personal history of urinary calculi (ICD-10) Gastroesophageal reflux disease ?K21.9 - Gastro-esophageal reflux disease without esophagitis (ICD-10) Surgical History History of Blanca fundoplication ?Z98.890 - Other specified postprocedural states (ICD-10) History of elbow surgery ?Z98.890 - Other specified postprocedural states (ICD-10) History of appendectomy ?Z90.49 - Acquired absence of other specified parts of digestive tract (ICD-10) Family History Father Diabetes Heart disease Colorectal polyps Brother Diabetes Colorectal polyps Sister Diabetes Uncle Prostate cancer Other Pancreatic cancer Social History Narrative: Patient works as a supplemental manager, he does heavy lifting. What is your current living situation?: I presently have a place to live Problems where you live: no known problems Problems where you live details: none In the past 12 months, utilities in danger of being shut off: no In past 12 months, lack of transportation kept you from medical appts, meetings, work, or getting things needed for daily living: no In the past 12 mos, have been you worried that your food would run out before you had money to buy more?: never true In the past 12 mos, the food you bought just didn't last and you didn't have money to buy more?: never true Smoking Status: Never smoker Do you use any of these nicotine containing products: None Second hand tobacco smoke exposure: No How often do you have a drink containing alcohol: never How often do you have six or more drinks on one occasion: Never AUDIT-C Alcohol total score: 0 Non-prescribed substance use: denies use Caffeine: No How often does anyone, including family, friends and others, physically hurt you: never How often does anyone, including family, friends and others, insult or talk down to you: never How often does anyone, including family, friends and others, threaten you with harm: never How often does anyone, including family, friends and others, scream or curse at you: never Gender Identity: male Meds Home Medications and Allergies Home Medications ?Medication ?Instructions ?Recorded ?Confirmed ?Type Diabetic Test Strips #100 ea 03/06/23 12/23/24 Rx aspirin 81 mg tablet,delayed 81 mg PO DAILY #90 tabs 11/25/24 12/29/24 Rx release fenofibrate micronized 134 mg 134 mg PO DAILY #90 caps 11/25/24 12/29/24 Rx capsule metformin 1,000 mg tablet 1,000 mg PO BIDWMEAL #360 tabs 11/25/24 12/29/24 Rx topiramate 50 mg tablet 50 mg PO BID #180 tabs 11/25/24 12/29/24 Rx gabapentin 300 mg capsule 300 mg PO TID PRN 12/01/24 12/29/24 History rosuvastatin 5 mg tablet 5 mg PO DAILY 12/29/24 12/29/24 History Allergies Allergy/AdvReac Type Severity Reaction Status Date / Time lidocaine Allergy Severe all eliud Verified 12/29/24 08:05 drugs, ex-xylocaine shellfish derived Allergy Severe throat Verified 12/29/24 08:05 swelling Exam Narrative: Exam Narrative: PHYSICAL EXAM General: Pleasant, conversant, NAD HEENT: Normocephalic, atraumatic, sclera white, EOMI, oral mucosa moist Cardiovascular: RRR, S1S2. No pitting edema Pulmonary: CTA bilaterally without rhonchi, rales, expiratory wheezes. No dyspnea Abdominal: Mild distension, appropriate postoperative tenderness, dressings in place dry without drainage Neurological: Alert, answering questions appropriately, cranial nerves intact, no focal findings Extremities: No gross joint deformity or swelling. AROMI. Neurovascularly intact Skin: Warm, dry. Const: Vital Signs, click to edit/add: Vital Signs - 24 hr 12/29/24 18:09 12/29/24 19:00 12/29/24 20:07 Temperature 99.7 F H 98.5 F 98.5 F Pulse Rate 78 78 Pulse Rate [Pulse Oximeter] Respiratory Rate 17 17 Blood Pressure 149/77 H 149/77 H Blood Pressure [Le ft Arm] Pulse Oximetry 93 79 L Oxygen Delivery Me thod Nasal Cannula Nasal Cannula Oxygen Flow Rate 3 3 12/29/24 21:00 12/29/24 22:00 12/29/24 23:00 Temperature 98.7 F 99.0 F Pulse Rate 83 Pulse Rate [Pulse Oximeter] 80 Respiratory Rate 17 18 16 Blood Pressure 127/73 Blood Pressure [Le ft Arm] 127/82 Pulse Oximetry 95 95 96 Oxygen Delivery Me thod Nasal Cannula Nasal Cannula Nasal Cannula Oxygen Flow Rate 2 2 1.5 12/30/24 01:30 12/30/24 08:48 12/30/24 08:48 Temperature 98.3 F 99.5 F Pulse Rate Pulse Rate [Pulse Oximeter] 74 71 71 Respiratory Rate 16 14 14 Blood Pressure Blood Pressure [Le ft Arm] 128/70 125/63 Pulse Oximetry 94 91 Oxygen Delivery Me thod Nasal Cannula Room Air Oxygen Flow Rate 1 12/30/24 08:48 12/30/24 11:15 12/30/24 15:33 Temperature 99.1 F 98.9 F Pulse Rate Pulse Rate [Pulse Oximeter] 78 69 Respiratory Rate 14 14 12 Blood Pressure Blood Pressure [Le ft Arm] 125/65 101/49 L Pulse Oximetry 91 91 91 Oxygen Delivery Me thod Room Air Room Air Room Air Oxygen Flow Rate 12/30/24 15:33 12/30/24 15:33 Temperature Pulse Rate Pulse Rate [Pulse Oximeter] 69 Respiratory Rate 12 12 Blood Pressure Blood Pressure [Le ft Arm] Pulse Oximetry 91 Oxygen Delivery Me thod Room Air Oxygen Flow Rate Assessment and Plan Assessment and plan (1) S/P right hemicolectomy: Problem comment: Laparoscopic right hemicolectomy and Extensive lysis of adhesions, 01/25/2025, Dr. Proctor Patient reports being hopeful he may discharge to home tomorrow Status: Acute (2) Elevated cholesterol with elevated triglycerides: Problem comment: Fenofibrate- started Resume upon discharge Status: Acute (3) Diabetes: Problem comment: [id number] holding Ozempic and Jardiance as directed by Hematology due to polycythemia Resume metformin and topiramate upon discharge Glucose checks b.i.d. (his routine at home) Status: Acute (4) Hyperlipidemia: Problem comment: History of Atorvastatin; causes deep leg aches in poor sleep. 11/25/2024-start rosuvastatin 5 mg nightly(okay to take 3 times per week if tolerates better) - resume home discharge Status: Acute Plan We were asked by General surgery for hospital consult. Patient believes he may be discharged home tomorrow at which time he can resume his home medications at that time. If he does stay longer, resume home medications. We will otherwise sign off at this time. Available for questions or concerns as they arise. Total Time Spent Total Time Spent: Today I spent 75 minutes seeing the patient, reviewing Expanse and EPIC notes/diagnostics, discussing the care plan with our care time that includes social work, PT/OT, pharmacy, RT, jail and documenting my impressions and plan in the medical record.
--- NOTE | 2024-12-30 18:04 | PC.NURSE ---
End of Shift: Patient pleasant and cooperative. Patient vitally stable, lungs clear, BS WNL, IV SL and intact. Patient rates abdominal pain at most 4-5/10, ibuprofen, tylenol, and 2 tabs of norco given once. Abdominal lap sites x3 and midline incision C/D/I. Patient tolerating full liquid diet consuming two ensure(1 mixed with ice cream), a couple juices, and two soups. Patient walked the [place] once today. Patient has urinated once since moscoso removal. Patient had passed gas this morning, no gas this afternoon but reports a very active stomach.
[2024-12-30] MEDS: INSULIN ASPART 100 UNIT/ML SUBCUT (21:14)
[2024-12-30] MEDS: ONDANSETRON 2 MG/ML inj IVP (23:35)
[2024-12-31 03:00] VITALS: BP 118/71; PULSE 65; RESP 18; TEMP 37.3; O2SAT 91
--- NOTE | 2024-12-31 05:30 | PC.NURSE ---
Shift note: Patient is independent in room. He ambulated in [place] way. Endorsed passing gas. Patient reported feeling bloated. At 0230, pt complained of nausea and and abdominal discomfort. Zofran and Ibuprofen given which was effective per pt. LAP sites clean and dry, central dressing intact, clean and dry. Clear liquid diet maintained.
[2024-12-31 07:30] LABS: Basophils Absolute Auto 0.04 K/uL (0.00-0.30); Basophils Percent Auto 0.4 % (0.0-3.0); Eosinophils Absolute Auto 0.15 K/uL (0.00-0.50); Eosinophils Percent Auto 1.4 % (0.0-7.0); Hematocrit 45.8 % (37.0-53.0); Hemoglobin* 14.8 gm/dL (13.5-17.5); Immature Granulocytes Abs Auto 0.02 K/uL (0.00-0.30); Immature Granulocytes Pct Auto 0.2 %; Lymphocytes Percent Auto 10.6 % (20-44); Mean Corpuscular HGB Conc 32 gm/dL (32-36); Mean Corpuscular Hemoglobin 32 pg (26-34); Mean Corpuscular Volume 97 fL (80-100); Monocytes Percent Auto 9.2 % (0.0-11.0); Neutrophils Percent Auto 78.2 % (42.0-72.0); Platelet Count* 225 K/uL (140-440); RDW Coefficient of Variation % 13.2 % (11.5-15.5); White Blood Count* 10.71 K/uL (4.50-11.00)
[2024-12-31 07:35] LABS: Slide Review Reflex No
[2024-12-31 07:41] LABS: Chloride* 104 mmol/L (96-114); Sodium* 140 mmol/L (135-149)
[2024-12-31 07:45] LABS: Anion Gap 6 mEq/L (7-15); Blood Urea Nitrogen* 24 mg/dL (7-30); Calcium* 8.9 mg/dL (8.4-10.6); Carbon Dioxide* 30 mmol/L (20-32); Creatinine* 1.6 mg/dL (0.5-1.5); Est. Creatinine Clearance* 42.64; Estimated Glomerular Filt Rate 48 ml/min; Glucose* 147 mg/dL (60-115)
[2024-12-31] MEDS: KETOROLAC 30 MG/ML inj IVP (08:41)
[2024-12-31 08:44] VITALS: BP 172/82; PULSE 72; RESP 16; TEMP 37.7; O2SAT 91
[2024-12-31] MEDS: HYDROCODONE-ACETAMIN 5-325 MG 1 TAB PO ×2 (08:48→15:31)
--- NOTE | 2024-12-31 09:00 | PM.DS1 ---
DS: Providers Provider Date Seen: 12/31/24 Date of admission: 12/29/24 07:54 Primary care physician: Sherrie Hernandez PA-C Admitting Clinician: Vasyl Proctor MD Attending Physician on discharge: Vasyl Proctor MD DS: Diagnosis Discharge Diagnosis (1) S/P right hemicolectomy: Status: Acute Problem details: Laparoscopic right hemicolectomy and Extensive lysis of adhesions, 01/25/2025, Dr. Proctor DS: Summary Hospital Course Hospital Course: Patient was admitted to the hospital after he underwent right hemicolectomy and lysis of adhesions for endoscopically unresectable ileocecal valve polyp. Patient did well postoperatively. He had return of bowel function and was passing gas. He tolerated diet. His pain was controlled with p.o. medications. He ambulated. Time Spent with Patient Time attestation: Total time spent providing and/or coordinating discharge services: Exam Narrative: Exam Narrative: Abdomen is soft, protuberant, not distended, laparoscopic incisions were covered with clean and dry Steri-Strips. There is hyperemic ecchymosis surrounding the left lower quadrant incision and suprapubic incision. No erythema near the midline supraumbilical incision. Abdomen is tender to palpation on the right side but not the left. Const: Vital Signs, click to edit/add: Vital Signs - 24 hr 12/30/24 11:15 12/30/24 15:33 12/30/24 15:33 Temperature 99.1 F 98.9 F Pulse Rate [Pulse Oximeter] 78 69 69 Respiratory Rate 14 12 12 Blood Pressure [Le ft Arm] 125/65 101/49 L Blood Pressure [Ri ght Arm] Pulse Oximetry 91 91 Oxygen Delivery Me thod Room Air Room Air 12/30/24 15:33 12/30/24 19:00 12/30/24 23:00 Temperature 98.8 F Pulse Rate [Pulse Oximeter] 81 81 Respiratory Rate 12 18 18 Blood Pressure [Le ft Arm] 123/64 Blood Pressure [Ri ght Arm] Pulse Oximetry 91 92 Oxygen Delivery Me thod Room Air Room Air 12/30/24 23:00 12/30/24 23:00 12/30/24 23:35 Temperature 99.3 F 99.3 F Pulse Rate [Pulse Oximeter] 69 Respiratory Rate 18 18 Blood Pressure [Le ft Arm] 156/71 H Blood Pressure [Ri ght Arm] Pulse Oximetry 92 92 Oxygen Delivery Me thod Room Air Room Air 12/31/24 03:00 12/31/24 08:44 Temperature 99.2 F 99.8 F H Pulse Rate [Pulse Oximeter] 65 72 Respiratory Rate 18 16 Blood Pressure [Le ft Arm] 118/71 Blood Pressure [Ri ght Arm] 172/82 H Pulse Oximetry 91 91 Oxygen Delivery Me thod Room Air DS: Data Data Completed and Pending Labs on day of discharge: Labs from last 24 hours 12/31/24 07:23 WBC 10.71 RBC 4.70 Hgb 14.8 Hct 45.8 MCV 97 MCH 32 MCHC 32 RDW Coeff of [place] 13.2 Plt Count 225 Neut % (Auto) 78.2 H Lymph % (Auto) 10.6 L [place] % (Auto) 9.2 Eos % (Auto) 1.4 Baso % (Auto) 0.4 Neut # (Auto) 8.40 H Lymph # (Auto) 1.10 [place] # (Auto) 1.00 H Eos # (Auto) 0.15 Baso # (Auto) 0.04 Abs Immat Gran (auto) 0.02 Imm/Tot Granulo (auto) 0.2 Sodium 140 Potassium 4.0 Chloride 104 Carbon Dioxide 30 Anion Gap 6 L BUN 24 Creatinine 1.6 H Estimated Creat Clear 42.64 Estimated GFR 48 Glucose 147 H Calcium 8.9 Discharge Plan Discharge Disposition: Home w/ Parent or Adult Date of Admission: 12/29/24 07:54 Attending Provider on Discharge: Vasyl Proctor Primary Care Provider: Sherrie Hernandez Anticipated Discharge Date/Time: 12/31/24 14:18 Discharge Medications: New hydrocodone-acetaminophen 5-325 mg tablet 1 tab PO Q6H PRN (Reason: pain) Qty: 25 0RF Continued gabapentin 300 mg capsule 300 mg PO TID PRN topiramate 50 mg tablet 50 mg PO BID Qty: 180 3RF Rx Instructions: twice daily metformin 1,000 mg tablet 1,000 mg PO BIDWMEAL Qty: 360 3RF fenofibrate micronized 134 mg capsule 134 mg PO DAILY Qty: 90 3RF Rx Instructions: for elevated triglycerides aspirin 81 mg tablet,delayed release (DR/EC) 81 mg PO DAILY Qty: 90 3RF rosuvastatin 5 mg tablet 5 mg PO DAILY Rx Instructions: once daily for cholesterol No Action (DME) Diabetic Test Strips Misc See Rx Instructions .Route Qty: 100 4RF Rx Instructions: BID. Discharge Orders: Discharge Order (Routine); Ordered 12/31/24 Ordered By: Vasyl Proctor Activity Level: No strenuous activity Activity Detail: No strenuous activity or lifting more than 15-20 lbs for 4-6 weeks. Okay to shower any time. No baths or swimming for 2 weeks. Keep an eye on the left lower quadrant incision to make sure the redness is not spreading. Discharge Diet: Low Fiber Follow Up Appointments: Vasyl Proctor MD [Staff Physician, General Surgery] Forms: MyHealth Info Instructions
[2024-12-31 10:00] VITALS: BMI 31.4
[2024-12-31 11:08] VITALS: BP 108/66; PULSE 75; RESP 14; TEMP 37.1; O2SAT 90
[2024-12-31] MEDS: 0.9 % SODIUM CHLORIDE 1000 ml 1,000 ML IV (11:58)
--- NOTE | 2024-12-31 15:59 | PC.NURSE ---
Discharge: Patient pleasant and cooperative. Patient vitally stable, lungs clear, BS WNL, IV removed, catheter intact. Patient rated abdominal pain at most 4/10, toradol given once and norco 2 tabs given twice. Patient tolerating regular diet, and urinating well. NS 1000ml bolus was given per MD. Patient's abdominal lap sites x3 and midline incision C/D/I. Patient signed belongings sheet and discharge form, all questions answered. Patient left the floor ambulating independently to home at 1549.
== END 2024-12-31 15:49 | disposition home or self-care (01) | DRG 331 ==
PROVIDERS: Admitting Provider Surgery; PCP Physician Assistant Medical; Visit Provider Surgery
PROC: 0DTB4ZZ Resection of Ileum, Percutaneous Endoscopic Approach (ICD-10-PCS; CPT 44205; principal; 2024-12-29 09:15)
DX: D12.0 Benign neoplasm of cecum (principal); K66.0 Peritoneal adhesions (postprocedural) (postinfection); G89.18 Other acute postprocedural pain; D75.1 Secondary polycythemia; E11.9 Type 2 diabetes mellitus without complications; Z79.84 Long term (current) use of oral hypoglycemic drugs; G89.29 Other chronic pain; M25.511 Pain in right shoulder; E66.9 Obesity, unspecified; K21.9 Gastro-esophageal reflux disease without esophagitis; E78.2 Mixed hyperlipidemia; Z79.82 Long term (current) use of aspirin
CPT/HCPCS: 00790; 36415; 64488; 76942; 80048; 82962; 85025; A4314; A9270; J0330; J0665; J0666; J1171; J1335; J1885; J2250; J2405; J2704; J2710; J3010; J3490; J7030; J7120

== ENCOUNTER 2025-01-13 12:59 | Outpatient (CLI) | payer OTHER, SELFPAY ==
--- NOTE | 2025-01-13 15:00 | CRLHL7_ITS ---
For Patients: As a result of the Century Cures Act, medical imaging exams and procedure reports are released immediately into your electronic medical record. You may view this report before your referring provider. If you have questions, please contact your health care provider. Indication: ABDOMINAL PAIN, EVAL FOR ABSCESS, RT FLANK PAIN Technique: CT Abdomen/Pelvis W/95CC [id number] INTRAVENOUS CONTRAST AND ORAL CONTRAST Please note that all CT scans at this facility use dose modulation, iterative reconstruction, and/or weight-based dosing when appropriate to reduce radiation dose to as low as reasonably achievable. Comparison: MRI 11/16/2019 Findings: Lung bases are clear. Fatty liver. Sub cm cyst in the dome of the liver. Spleen is unremarkable. Incidental splenule. Normal pancreas. Adrenal glands are normal. No hydronephrosis or solid renal mass. Sub cm left renal cysts. Gallbladder normal. Atherosclerotic changes. No aneurysm. Normal bladder. Prostate is not enlarged. There is no bowel obstruction. Postoperative changes to the right colon noted. No free air or abscess. No drainable fluid collection. Mild curvilinear densities located within the right side of the mesenteric fat. A few scattered sub cm lymph nodes are noted. Small umbilical hernia containing fat is present. No fracture. Clot in the superior mesenteric vein is present, nonocclusive, measuring 3.0 cm in length. Impression: Postop changes right hemicolectomy. No free air or abscess. No drainable fluid collection or bowel obstruction. Clot is present within the superior mesenteric vein extending to a branch vessel extending into the right side of the abdomen. The portal vein, splenic vein and IVC are widely patent. Please note that all CT scans at this facility use dose modulation, iterative reconstruction, and/or weight-based dosing when appropriate to reduce radiation dose to as low as reasonably achievable. Dictated by Jarrett Mcguire MD @ 01/14/2025 1:11:41 PM (Electronically Signed)
== END 2025-01-13 13:00 | disposition home or self-care (01) ==
LOC: CT 13:00
PROVIDERS: PCP Physician Assistant Medical; Visit Provider Surgery
DX: R10.9 Unspecified abdominal pain (principal); K55.059 Acute (reversible) ischemia of intestine, part and extent unspecified; Z90.49 Acquired absence of other specified parts of digestive tract
CPT/HCPCS: 74177; Q9967

== ENCOUNTER 2025-01-18 11:10 | Outpatient (CLI) | payer OTHER, SELFPAY | END 2025-01-18 11:11 | disposition home or self-care (01) | PROVIDERS: PCP Physician Assistant Medical; Visit Provider Physician Assistant Medical | DX: K55.069 Acute infarction of intestine, part and extent unspecified (principal); R79.89 Other specified abnormal findings of blood chemistry; R53.83 Other fatigue; E66.9 Obesity, unspecified; E78.2 Mixed hyperlipidemia; E11.9 Type 2 diabetes mellitus without complications; D75.1 Secondary polycythemia | CPT/HCPCS: 81240; 81241; 83090; 85300; 85302; 85303; 85306; 85384; 86146; 86147 ==

== ENCOUNTER 2025-03-03 08:43 | Outpatient (CLI) | payer OTHER, SELFPAY | END 2025-03-03 08:44 | disposition home or self-care (01) | LOC: NFLDREF 03-05 13:52 | PROVIDERS: PCP Physician Assistant Medical; Referring Provider Physician Assistant Medical; Visit Provider Physician Assistant Medical | DX: E78.5 Hyperlipidemia, unspecified (principal); Z79.01 Long term (current) use of anticoagulants | CPT/HCPCS: 80061; 80076 ==